=== PATIENT | female | born 1930 | race Caucasian/White ===

== ENCOUNTER 2019-07-22 18:50 | Inpatient (IN) | payer OTHER ==
--- OUTSIDE RECORDS SUMMARY | 2019-07-22 18:52 | XMS REPORT ---
:1930 [facility] [place] [address] Care Team Providers Name Role Phone Unavailable Unavailable Unavailable Problems This patient has no known problems. Allergies, Adverse Reactions, Alerts This patient has no known allergies or adverse reactions. Medications This patient has no known medications.
--- OUTSIDE RECORDS SUMMARY | 2019-07-22 18:53 | XMS REPORT ---
:1930 Author Organization e[employer] Care Team Providers Name Role Phone Jay Green Provider Role Unavailable Allergies, Adverse Reactions, Alerts Substance Reaction Event Type N.K.D.A. Info Not Available Non Drug Allergy Problems Problem Type Condition Code Onset Dates Condition Status Assessment Primary osteoarthritis of left knee M17.12 Active Assessment Pain in joint of right knee M25.561 Active Assessment Primary osteoarthritis of right M17.11 Active knee Assessment Pain in joint of left knee M25.562 Active Problem Primary insomnia F51.01 Active Problem Situational insomnia F51.09 Active Problem Acute bacterial conjunctivitis of H10.32 Active left eye Problem Primary osteoarthritis of right M17.11 Active knee Problem Other osteoporosis M81.8 Active Problem Primary osteoarthritis of left knee M17.12 Active Problem Other chronic pain G89.29 Active Problem Body mass index (BMI) of 36.0-36.9 Z68.36 Active in adult Problem Unsteady gait R26.81 Active Problem Leg weakness, bilateral R29.898 Active Problem Peripheral neuropathy G62.9 Active Problem Other insomnia not due to a F51.09 Active substance or known physiological condition Problem Incontinence in female R32 Active Problem 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 Active Problem Type 2 diabetes mellitus with E11.22 Active diabetic chronic kidney disease Problem Chronic kidney disease, stage III N18.3 Active (moderate) Problem Primary osteoarthritis of left hip M16.12 Active Problem Primary osteoarthritis of right hip M16.11 Active Problem Obstructive sleep apnea G47.33 Active Problem Depressive disorder F32.9 Active Problem Overactive bladder N32.81 Active Problem Polyneuropathy G62.9 Active Problem Bronchitis J40 Active Problem Cough R05 Active Problem Restless leg syndrome G25.81 Active Problem Bursitis M71.9 Active Medications Medication Code Code Instructions Start End Date Status Dosage System Date KevinStyle Heldere [facility] 73885370468 - In Vitro once Feb 17, Active as directed Test daily 2018 Lancets 30G [facility] 46527658500 - in vitro once Feb 17, Active as directed daily 2019 Tramadol HCl [facility] 59840021766 50 MG Orally December 29, Active 1 tablet as every 6hrs 2018 needed Ropinirole HCl [facility] 60843774017 3 MG Orally Active 1 tablet 1 Twice a day to 3 hours before bedtime Pioglitazone ND 45590630196 15 Orally Once Active take 1 HCl a day tablet by mouth every day HANDICAP NDC 0 1 permanent Feb 17, Active as directed PLACARD 2018 Oxybutynin [facility] 70457260858 10 MG Orally August Active take 1 Chloride ER Once a day 2019 tablet by mouth every day Quetiapine [facility] 78734319853 200 mg Orally Active 2 tablets Fumarate Once a day at bedtime Lyrica ND 14693659446 75 MG Orally Active 1 capsule QAM and 2 caps QHS Stool Softener [facility] 53913590834 100 MG Orally September Active 1 capsule Once a day 2016 as needed Cranberry Plus [facility] 86158110191 4200-20-3 September Active 1 capsule Vitamin C MG-MG-UNIT 2016 Orally once a day Results No Known Results Summary Purpose eClinicalWorks Submission
--- OUTSIDE RECORDS SUMMARY | 2019-07-22 18:53 | XMS REPORT ---
:1930 Author Organization [employer]Clinical[employer] Care Team Providers Name Role Phone MattRaisacy Provider Role Unavailable Allergies No Known Allergies Problems Problem Type Condition Code Onset Dates Condition Status Assessment Incontinence in female R32 Active Problem Primary insomnia F51.01 Active Problem [...] Start End Date Status Dosage System Date Oxybutynin ND 67604629996 10 MG Orally August Active take 1 Chloride ER Once a day 2019 tablet by mouth every day Ropinirole HCl NDC 97017700348 3 MG Orally May 08, Active 1 tablet 1 Twice a day 2018 to 3 hours before bedtime FreeArik Whipple ND 20790281179 - In Vitro once Feb 17, Active as directed Test daily 2018 HANDICAP NDC 0 1 permanent Feb 17, Active as directed PLACARD 2018 Quetiapine [facility] 14511595185 200 mg Orally Active 2 tablets Fumarate Once a day at bedtime Cranberry Plus [facility] 80880086634 4200-20-3 September Active 1 capsule Vitamin C MG-MG-UNIT 2016 Orally once a day Lancets 30G [facility] 08578678801 - in vitro once Feb 17, Active as directed daily 2018 Pioglitazone ND 12534750875 15 Orally Once Active take 1 HCl a day tablet by mouth every day Tramadol HCl ND 08000613289 50 MG Orally December 29, Active 1 tablet as every 6hrs 2018 needed Lyrica ND 61281656067 75 MG Orally Active 1 capsule QAM and 2 caps QHS Stool Softener [facility] 77283186611 100 MG Orally September Active 1 capsule Once a day 2016 as needed Results No Known Results Summary Purpose eClinicalWorks Submission
--- OUTSIDE RECORDS SUMMARY | 2019-07-22 18:53 | XMS REPORT ---
:1930 Author Organization [employer]ClinicalWorks Care Team Providers Name Role Phone Sharri Hernandes Provider Role Unavailable Allergies, Adverse Reactions, Alerts Substance Reaction Event Type N.K.D.A. Info Not Available Non Drug Allergy Problems Problem Type Condition Code Onset Dates Condition Status Assessment Restless leg syndrome G25.81 Active Assessment Type 2 diabetes mellitus with E11.22 Active diabetic chronic kidney disease Assessment Polyneuropathy G62.9 Active Problem Primary insomnia F51.01 Active Problem [...] Medications Medication Code Code Instructions Start End Status Dosage System Date Date Lancets 30G [facility] 28495581511 - in vitro once Feb 17, Active as daily 2019 directed Pioglitazone ND 81283516912 15 Orally Once Active take 1 HCl a day tablet by mouth every day Quetiapine ND 58372133141 200 mg Orally Active 2 tablets Fumarate Once a day at bedtime Ropinirole HCl [facility] 05223627048 3 MG Oral Active TK 1 T PO BID Q NIGHT 1 TO 3 H B BED HANDICAP ND 0 1 permanent Feb 17, Active as PLACARD 2018 directed Cranberry Plus [facility] 17334403176 4200-20-3 September Active 1 capsule Vitamin C MG-MG-UNIT 2016 Orally once a day Oxybutynin [facility] [address]-31 5 MG Orally Active 1/2 tablet Chloride Once a day Myrbetriq [facility] 36522163164 25 MG Orally Active 1 tablet Once a day FreeStyle Lite [facility] 93987279565 - In Vitro once Feb 17, Active as Test daily 2018 directed Stool Softener [facility] 13335206264 100 MG Orally September Active 1 capsule Once a day 2016 as needed Results Name Result Date Reference Range Unit Abnormality Flag HEMOGLOBIN A1C ----A1C 6.0 [id number] Summary Purpose eClinicalWorks Submission
--- OUTSIDE RECORDS SUMMARY | 2019-07-22 18:53 | XMS REPORT ---
:1930 Author Organization [employer]ClinicalWorks Care Team Providers Name Role Phone Sharri Hernandes Provider Role Unavailable Allergies No Known Allergies Problems Problem Type Condition Code Onset Dates Condition Status Assessment Leg weakness, bilateral R29.898 Active Assessment Restless leg syndrome G25.81 Active Problem Primary insomnia F51.01 Active Problem [...] G25.81 Active Problem Bursitis M71.9 Active Medications No Known Medications Results No Known Results Summary Purpose eClinicalWorks Submission
[2019-07-22] MEDS ORDERED: ENOXAPARIN 100 MG/ML SYR SQ ONE (19:31)
[2019-07-22] MEDS ORDERED: LEVALBUTEROL 1.25 MG/3 ML NEB ONE (19:31)
[2019-07-22] MEDS ORDERED: METHYLPREDNISOLONE 125 MG INJ ONE (19:31)
[2019-07-22 19:42] LABS: Protime INR 1.16
--- NOTE | 2019-07-22 19:45 | RAD REPORT ---
EXAM DESCRIPTION: [place] Single View07/22/2019 7:38 pm CLINICAL HISTORY: Shortness of breath COMPARISON: 2012 FINDINGS: [id number] bilateral pulmonary opacities. The heart is mildly enlarged. Small pleura l effusions may be present IMPRESSION: These findings probably represent CHF. Pneumonia is another consideration
[2019-07-22 19:50] LABS: Absolute Lymphocytes (CBC) 1.3 K/uL (0.7-4.9); Basophils % 0.8 % (0-1.3); Hematocrit 38.8 % (36.0-45.0); Lymphocytes % 11.8 % (15.3-44.8); MPV 9.6 fL (7.6-11.3); RBC Red Blood Cell Count 3.62 M/uL (3.86-4.86)
[2019-07-22 19:58] LABS: Albumin 3.1 g/dL (3.4-5.0); Bilirubin Direct 0.3 mg/dL (0-0.2); Bilirubin Total 0.9 mg/dL (0.2-1.0); Magnesium 2.1 mg/dL (1.8-2.4); Potassium 3.8 mmol/L (3.5-5.1); Protein, Total 6.6 g/dL (6.4-8.2); Troponin (Emerg Dept Use Only) 0.25 ng/mL (0.0-0.045)
[2019-07-22] MEDS ORDERED: FUROSEMIDE 20 MG/ 2ML VIAL ONE (20:50)
[2019-07-22] MEDS ORDERED: FUROSEMIDE 40 MG/4 ML VIAL ONE (20:51)
[2019-07-22] MEDS ORDERED: METOPROLOL TAR 25 MG TAB ONE (21:33)
--- NOTE | 2019-07-22 21:37 | EDPHYS ---
Physician Documentation [facility] Name: Lisa Hinkle Age: 88 yrs Sex: Female : 1930 Arrival Date: 07/22/2019 Time: 18:56 Bed 19 Private MD: ED Physician Rj Clay HPI: 07/22 19:44 This 88 yrs old Female presents to ER via EMS with complaints of shortness of jr8 breath. 19:44 The patient has shortness of breath at rest. Onset: The symptoms/episode began/occurred jr8 gradually, 3 day(s) ago, and became worse and became persistent. Duration: The symptoms are continuous. The patient's shortness of breath is aggravated by coughing, walking. Associated signs and symptoms: The patient has no apparent associated signs or symptoms. Severity of symptoms: At their worst the symptoms were moderate in the emergency department the symptoms are unchanged. The patient has not experienced similar symptoms in the past. The patient has not recently seen a physician. Historical: - Allergies: 18:59 No Known Allergies; jl7 - Home Meds: 19:10 quetiapine 200 mg oral tab nightly [Active]; ropinirole 3 mg oral tab [Active]; wh pioglitazone 15 mg oral tab [Active]; Cranberry Pills [Active]; Stool Softener [Active]; - PMHx: 19:10 Diabetes - NIDDM; wh - PSHx: 19:10 Cholecystectomy; wh - Immunization history:: Adult Immunizations up to date. - Coronavirus screen:: The patient has NOT traveled to [place] in the past 14 days. Proceed with normal triage process as indicated. - Social history:: Smoking status: Patient denies any tobacco usage or history of. - Ebola Screening: : No symptoms or risks identified at this time. ROS: 19:44 Eyes: Negative for injury, pain, redness, and discharge, ENT: Negative for injury, jr8 pain, and discharge, Neck: Negative for injury, pain, and swelling, Cardiovascular: Negative for chest pain, palpitations, and edema, Abdomen/GI: Negative for abdominal pain, nausea, vomiting, diarrhea, and constipation, Back: Negative for injury and pain, MS/Extremity: Negative for injury and deformity, Skin: Negative for injury, rash, and discoloration, Neuro: Negative for headache, weakness, numbness, tingling, and seizure. 19:44 Respiratory: Positive for dyspnea on exertion, shortness of breath, wheezing. Exam: 19:44 Eyes: Pupils equal round and reactive to light, extra-ocular motions intact. Lids and jr8 lashes normal. Conjunctiva and sclera are non-icteric and not injected. Cornea within normal limits. Periorbital areas with no swelling, redness, or edema. ENT: Nares patent. No nasal discharge, no septal abnormalities noted. Tympanic membranes are normal and external auditory canals are clear. Oropharynx with no redness, swelling, or masses, exudates, or evidence of obstruction, uvula midline. Mucous membranes moist. Neck: Trachea midline, no thyromegaly or masses palpated, and no cervical lymphadenopathy. Supple, full range of motion without nuchal rigidity, or vertebral point tenderness. No Meningismus. Cardiovascular: Regular rate and rhythm with a normal S1 and S2. No gallops, murmurs, or rubs. Normal PMI, no JVD. No pulse deficits. Abdomen/GI: Soft, non-tender, with normal bowel sounds. No distension or tympany. No guarding or rebound. No evidence of tenderness throughout. Back: No spinal tenderness. No costovertebral tenderness. Full range of motion. Skin: Warm, dry with normal turgor. Normal color with no rashes, no lesions, and no evidence of cellulitis. MS/ Extremity: Pulses equal, no cyanosis. Neurovascular intact. Full, normal range of motion. Neuro: Awake and alert, GCS 15, oriented to person, place, time, and situation. Cranial nerves II-XII grossly intact. Motor strength 5/5 in all extremities. Sensory grossly intact. Cerebellar exam normal. Normal gait. 19:44 Respiratory: mild respiratory distress is noted, Respirations: labored breathing, tachypnea, Breath sounds: wheezing: expiratory that is moderate, is heard diffusely, Respiratory rate: 28 Vital Signs: 18:59 BP 109 / 72; Pulse 72; Resp 28 S; Temp 99.3(O); Pulse Ox 97% on R/A; Weight 90.72 kg jl7 (R); Pain 0/10; 20:00 BP 102 / 56; Pulse 86; Resp 18; Pulse Ox 99% on 2 lpm NC; wh 20:56 BP 117 / 75; Pulse 100; Resp 22; Pulse Ox 99% on 2 lpm NC; wh 22:30 BP 116 / 77; Pulse 97; Resp 20; Pulse Ox 98% 2 lpm ; MDM: 19:05 Patient medically screened. [facility] 21:35 Data reviewed: vital signs, nurses notes, lab test result(s), EKG, radiologic studies, jr8 plain films. Data interpreted: Pulse oximetry: on room air is 97 %. Interpretation: acceptable. Counseling: I had a detailed discussion with the patient and/or guardian regarding: the historical points, exam findings, and any diagnostic results supporting the discharge/admit diagnosis, lab results, radiology results, the need for further work-up and treatment in the hospital. 07/22 19:11 Order name: Basic Metabolic Panel; Complete Time: 20:17 07/22 19:11 Order name: CBC with Diff 07/22 19:11 Order name: LFT's; Complete Time: 20:17 07/22 19:11 Order name: Magnesium; Complete Time: 20:07/22 19:11 Order name: NT PRO-BNP; Complete Time: 20:17 07/22 19:11 Order name: PT-INR; Complete Time: 19:58 07/22 19:11 Order name: Troponin (emerg Dept Use Only); Complete Time: 20:17 07/22 19:11 Order name: XRAY Chest (1 view); Complete Time: 20:19 07/22 19:41 Order name: Blood Culture Adult (2) [facility] 07/22 19:41 Order name: Procalcitonin; Complete Time: 21:06 07/22 19:41 Order name: Lactate; Complete Time: 21:06 07/22 22:38 Order name: CBC Smear Scan EDMS 07/22 19:11 Order name: EKG; Complete Time: 19:12 07/22 19:11 Order name: Cardiac monitoring; Complete Time: 19:31 07/22 19:11 Order name: EKG - Nurse/Tech; Complete Time: 19:15 07/22 19:11 Order name: IV Saline Lock; Complete Time: 19:15 07/22 19:11 Order name: Labs collected and sent; Complete Time: 19:31 07/22 19:11 Order name: O2 Per Protocol; Complete Time: 19:31 jr8 07/22 19:11 Order name: O2 Sat Monitoring; Complete Time: : jr8 Administered Medications: 19:30 Drug: SOLU-Medrol 125 mg Route: IVP; Site: left antecubital; 23:32 Follow up: Response: No adverse reaction 19:31 Drug: Xopenex (3) 1.25 mg Route: Inhalation; 23:32 Follow up: Response: No adverse reaction; Wheezing diminished 19:33 Drug: Lovenox 1 mg/kg Route: Sub-Q; Site: right lower abdomen; 23:32 Follow up: Response: No adverse reaction 20:56 Drug: Lasix 60 mg Route: IVP; Site: right antecubital; 23:33 Follow up: Response: No adverse reaction 21:27 Drug: Metoprolol 25 mg Route: PO; 23:33 Follow up: Response: No adverse reaction Disposition: 07/22/19 21:36 Hospitalization ordered by Sd Jarvis for Inpatient Admission. Preliminary diagnosis are Acute pulmonary edema, Acute combined systolic (congestive) and diastolic (congestive) heart failure, Atrial fibrillation and flutter. - Bed requested for Telemetry/MedSurg (Inpatient). - Status is Inpatient Admission. - Condition is Fair. - Problem is new. - Symptoms have improved. Addendum: 07/25/2019 07:14 Co-signature as Attending Physician, Rj Clay MD. r n Signatures: Dispatcher [employer] EDMS Rj Clay MD MD rn Roszak, Josh, PA PA jr8 Funmi Bowie RN RN tl1 Carlos Craig RN RN jl7 Zachary Bonilla Corrections: (The following items were deleted from the chart) 07/22 23:15 21:36 Hospitalization Ordered by Sd Jarvis for Inpatient Admission. Preliminary tl1 diagnosis is Acute pulmonary edema; Acute combined systolic (congestive) and diastolic (congestive) heart failure; Atrial fibrillation and flutter. Bed requested for Telemetry/MedSurg (Inpatient). Status is Inpatient Admission. Condition is Fair. Problem is new. Symptoms have improved. jr8 07/23 00:10 07/22 23:15 07/22/2019 21:36 Hospitalization Ordered by Sd Jarvis for Inpatient Admission. Preliminary diagnosis is Acute pulmonary edema; Acute combined systolic (congestive) and diastolic (congestive) heart failure; Atrial fibrillation and flutter. Bed requested for Telemetry/MedSurg (Inpatient). Status is Inpatient Admission. Condition is Fair. Problem is new. Symptoms have improved. tl1
--- NOTE | 2019-07-22 21:37 | ER ---
Nurse's Notes [facility] [place] Name: Lisa Hinkle Age: 88 yrs Sex: Female : 1930 Arrival Date: 07/22/2019 Time: 18:56 Bed 19 Private MD: Diagnosis: Acute pulmonary edema;Acute combined systolic (congestive) and diastolic (congestive) heart failure;Atrial fibrillation and flutter Presentation: 07/22 18:57 Presenting complaint: EMS states: Cough x 3 days, sob since this morning. Transition of [facility] care: patient was not received from another setting of care. Onset of symptoms was July 22, 2019. Risk Assessment: Do you want to hurt yourself or someone else? Patient reports no desire to harm self or others. Initial Sepsis Screen: Does the patient meet any 2 criteria? No. Patient's initial sepsis screen is negative. Does the patient have a suspected source of infection? No. Patient's initial sepsis screen is negative. Care prior to arrival: IV initiated. 20 GA, in the left antecubital area, Glucose check: 200. 18:57 Method Of Arrival: EMS: [place] [id number] 18:57 Acuity: SARA 3 [facility] Triage Assessment: 18:59 General: Appears in no apparent distress. uncomfortable, Behavior is cooperative, jl7 anxious. Pain: Denies pain. Neuro: Level of Consciousness is awake, alert, obeys commands, Oriented to person, place, time, situation. Cardiovascular: Patient's skin is warm and dry. Respiratory: Airway is patent Respiratory effort is even, unlabored, Respiratory pattern is symmetrical, tachypnea. Derm: Skin is pink, warm \T\ dry. Historical: - Allergies: 18:59 No Known Allergies; jl7 - Home Meds: 19:10 quetiapine 200 mg oral tab nightly [Active]; ropinirole 3 mg oral tab [Active]; pioglitazone 15 mg oral tab [Active]; Cranberry Pills [Active]; Stool Softener [Active]; - PMHx: 19:10 Diabetes - NIDDM; wh - PSHx: 19:10 Cholecystectomy; wh - Immunization history:: Adult Immunizations up to date. - Coronavirus screen:: The patient has NOT traveled to [place] in the past 14 days. Proceed with normal triage process as indicated. - Social history:: Smoking status: Patient denies any tobacco usage or history of. - Ebola Screening: : No symptoms or risks identified at this time. Screenin:05 Abuse screen: Denies threats or abuse. Denies injuries from another. Nutritional wh screening: No deficits noted. Tuberculosis screening: No symptoms or risk factors identified. Fall Risk None identified. Assessment: 19:10 General: Appears in no apparent distress. Behavior is calm, cooperative, appropriate wh for age. Pain: Denies pain. Neuro: Level of Consciousness is awake, alert, obeys commands, Oriented to person, place, time, situation, Appropriate for age. Cardiovascular: Heart tones S1 S2. Respiratory: Reports shortness of breath at rest cough that is. Respiratory: Airway is patent Respiratory effort is even, labored, Respiratory pattern is symmetrical, tachypnea Breath sounds with wheezes. GI: Abdomen is flat, non-distended. : No signs and/or symptoms were reported regarding the genitourinary system. EENT: Throat is pink. Derm: Skin is intact, is healthy with good turgor, Skin is pink, warm \T\ dry. normal. Musculoskeletal: Circulation, motion, and sensation intact. 20:30 Reassessment: Patient appears in no apparent distress at this time. No changes from previously documented assessment. Patient and/or family updated on plan of care and expected duration. Pain level reassessed. Patient is alert, oriented x 3, equal unlabored respirations, skin warm/dry/pink. 22:00 Reassessment: Patient appears in no apparent distress at this time. No changes from previously documented assessment. Patient and/or family updated on plan of care and expected duration. Pain level reassessed. Patient is alert, oriented x 3, equal unlabored respirations, skin warm/dry/pink. MD at bedside explaining POC need for admit Patient states feeling better. Patient states symptoms have improved. Reassessment:. 23:09 Reassessment: Patient appears in no apparent distress at this time. No changes from previously documented assessment. Patient and/or family updated on plan of care and expected duration. Pain level reassessed. Patient is alert, oriented x 3, equal unlabored respirations, skin warm/dry/pink. Patient states feeling better. Patient states symptoms have improved. Vital Signs: 18:59 BP 109 / 72; Pulse 72; Resp 28 S; Temp 99.3(O); Pulse Ox 97% on R/A; Weight 90.72 kg jl7 (R); Pain 0/10; 20:00 BP 102 / 56; Pulse 86; Resp 18; Pulse Ox 99% on 2 lpm NC; wh 20:56 BP 117 / 75; Pulse 100; Resp 22; Pulse Ox 99% on 2 lpm NC; wh 22:30 BP 116 / 77; Pulse 97; Resp 20; Pulse Ox 98% 2 lpm ; ED Course: 18:56 Patient arrived in ED. jl7 18:58 Triage completed. jl7 18:59 Arm band placed on right wrist. jl7 19:04 Colt Moore, RN is Primary Nurse. rr5 19:05 Zachary Bonilla is Primary Nurse. wh 19:05 Kyrie Gibbs PA is PHCP. jr8 19:05 Rj Clay MD is Attending Physician. jr8 19:05 Patient has correct armband on for positive identification. Placed in gown. Bed in low wh position. Call light in reach. Side rails up X 1. systems qa analyst on. Pulse ox on. NIBP on. 19:10 EKG done, by ED staff, reviewed by Rj Clay MD. ds4 19:38 XRAY Chest (1 view) In Process Unspecified. EDMS 20:20 Inserted saline lock: 20 gauge in right antecubital area, using aseptic technique. ds4 Blood collected. 20:34 Blood Culture Adult (2) Sent. ds4 20:34 Procalcitonin Sent. ds4 20:34 Lactate Sent. ds4 21:35 Sd Jarvis is Hospitalizing Provider. jr8 07/23 00:09 No provider procedures requiring assistance completed. Patient admitted, IV remains in place. Administered Medications: 07/22 19:30 Drug: SOLU-Medrol 125 mg Route: IVP; Site: left antecubital; 23:32 Follow up: Response: No adverse reaction 19:31 Drug: Xopenex (3) 1.25 mg Route: Inhalation; 23:32 Follow up: Response: No adverse reaction; Wheezing diminished 19:33 Drug: Lovenox 1 mg/kg Route: Sub-Q; Site: right lower abdomen; 23:32 Follow up: Response: No adverse reaction 20:56 Drug: Lasix 60 mg Route: IVP; Site: right antecubital; 23:33 Follow up: Response: No adverse reaction 21:27 Drug: Metoprolol 25 mg Route: PO; 23:33 Follow up: Response: No adverse reaction Outcome: 21:36 Decision to Hospitalize by Provider. jr8 07/23 00:09 Admitted to Tele accompanied by nurse, family with patient, via wheelchair, room 408, with oxygen, with chart, Report called to Dinah PEOPLES Condition: stable Instructed on the need for admit. 00:10 Patient left the ED. Signatures: Dispatcher [employer] EDMS Kyrie Gibbs PA PA jr8 Chandler Paula ds4 Carlos Craig RN RN jl7 Zachary Bonilla Colt Moore, RN RN rr5 Corrections: (The following items were deleted from the chart) 01:33 07/22 20:56 BP 117 / 75; Pulse 100bpm; Resp 22bpm; Pulse Ox 99% RA; [facility] 07/23 02:04 07/22 19:10 Respiratory: Airway is patent Respiratory effort is even, unlabored, Respiratory pattern is regular, symmetrical, Breath sounds with wheezes
[2019-07-22 22:38] LABS: Anisocytosis 1+; Blood Morphology Comment NOTED (NOT SEEN); Platelet Estimate ADEQ; Urine White Blood Cell Casts OK
--- NOTE | 2019-07-22 22:56 | P.HP ---
Certification for Inpatient Patient admitted to: Inpatient With expected LOS: >2 Midnights Practitioner: I am a practitioner with admitting privileges, knowledge of patient current condition, hospital course, and medical plan of care. Services: Services provided to patient in accordance with Admission requirements found in Title 42 Section 412.3 of the Code of Federal Regulations Patient History Date of Service: 07/22/19 Reason for admission: Shortness of breath History of Present Illness: 88-year-old woman with a history of restless leg syndrome and diabetes mellitus type 2 presented to the emergency department with a complaint shortness of breath of 3 days duration. Patient reports wheezing and nonproductive cough. Symptoms associated with orthopnea. She denied any chest pain or palpitation. She denied any fever. The patient noted to be in rapid atrial fibrillation in the ED. Chest x-ray in the ED report vascular congestion. She has no prior history of CHF. She mentioned at a point in time was told she has irregular heartbeat but that never bothered her. Her initial troponin is elevated. EKG demonstrates atrial fibrillation. BNP is elevated. Patient is admitted for further management of new onset CHF. Allergies codeine [Codeine] Allergy (Mild, Verified 07/12/15 08:12) Hives Home Medications: Cranberry 500 mg PO DAILY 01/29/12 Docusate Sodium [Stool Softener] 100 mg PO DAILY 09/12/16 Pioglitazone [Actos*] 15 mg PO DAILY 07/23/19 Quetiapine [Seroquel*] 200 mg PO BEDTIME 07/23/19 Ropinirole HCl [Requip] 3 mg PO BEDTIME 07/23/19 - Past Medical/Surgical History -: Restless leg syndrome -: Diabetes mellitus type 2 -: Back surgeries -: Shoulder surgery -: Cholecystectomy - Family History Family History: Reviewed- Non-Contributory - Family History Mother Notes: lung ca Father History Unknown: Yes - Social History Smoking Status: Never smoker Alcohol use: No CD- Drugs: No Caffeine use: Yes Review of Systems Other: Except as documented, all other systems reviewed and negative. Physical Examination - Physical Exam General: Alert, Oriented x3, Mild distress (Respiratory distress), Obese HEENT: PERRLA, Mucous membr. moist/pink, Sclerae nonicteric Neck: Supple, No Thyromegaly, JVD distended Respiratory: Normal air movement, Crackles/rales (Bilateral), Expiratory wheezes Cardiovascular: No edema, Normal S1 S2, Irregular heart rate/rhythm Capillary refill: <2 Seconds Gastrointestinal: Normal bowel sounds, Soft and benign, Non-distended, No tenderness Musculoskeletal: No swelling, No erythema Integumentary: No rashes Neurological: Normal speech, Normal strength at 5/5 x4 extr, Cranial nerves 3- 12 intact - Studies Laboratory Data (last 24 hrs) 07/22/19 19:25: PT 13.6 H, INR 1.16 07/22/19 19:25: WBC 10.7, Hgb 12.8, Hct 38.8, Plt Count 373 07/22/19 19:25: Sodium 139, Potassium 3.8, BUN 16, Creatinine 1.07, Glucose 156 H, Magnesium 2.1, Total Bilirubin 0.9, AST 18, ALT 15, Alkaline Phosphatase 111 Assessment and Plan - Problems (Diagnosis) (1) Acute CHF Current Visit: Yes Status: Acute (2) Atrial fibrillation with RVR Current Visit: Yes Status: Acute (3) Elevated troponin Current Visit: Yes Status: Acute (4) DM type 2 (diabetes mellitus, type 2) Current Visit: Yes Status: Acute - Plan Admit to Telemetry Trend troponin Start IV Lasix 40 mg b.i.d. Full-dose Lovenox for NSTEMI and AFib anticoagulation. Aspirin. Check lipid profile Oral metoprolol b.i.d. for AFib with RVR. Obtain echocardiogram Cardiology consult. - Advance Directives Does patient have a Living Will: No Does patient have a Durable POA for Healthcare: No
[2019-07-23] MEDS: IPRATROPIUM BROM 0.5MG/2.5ML NEB SCH ×7 (01:00→23:25)
[2019-07-23] MEDS: ALBUTEROL 2.5 MG/3 ML NEB SOL NEB PRN ×3 (04:25→19:40)
[2019-07-23 05:00] LABS: Absolute Lymphocytes (CBC) 0.5 K/uL (0.7-4.9); Basophils % 0.2 % (0-1.3); Hematocrit 34.7 % (36.0-45.0); Lymphocytes % 5.1 % (15.3-44.8); MPV 9.9 fL (7.6-11.3); RBC Red Blood Cell Count 3.32 M/uL (3.86-4.86)
[2019-07-23 05:13] LABS: Magnesium 1.9 mg/dL (1.8-2.4); Phosphorus 3.9 mg/dL (2.5-4.9)
--- NOTE | 2019-07-23 07:20 | EKG ---
Test Date: 2019-07-22 Test Time: 19:07:49 Stock Preparer: JEY MEASUREMENT RESULTS: Intervals: Rate: 117 SC: QRSD: 86 QT: 334 QTc: 465 [place]: P: SC: QRS: 14 T: 83 INTERPRETIVE STATEMENTS: Atrial fibrillation with rapid ventricular response Nonspecific T wave abnormality Abnormal ECG Compared to ECG 09/12/2016 14:48:26 T-wave abnormality now present Sinus rhythm no longer present Atrial premature complex(es) no longer present Electronically Signed On 07-23-19 07:19:14 MATERIAL MIXER by Krishna Worley
[2019-07-23] MEDS: ENOXAPARIN 100 MG/ML SYR SQ SCH ×2 (08:08→20:05)
[2019-07-23] MEDS: INSULIN -REGULAR HUMAN 50 UNIT/0.5 ML ML SQ SCH ×4 (08:08→20:06)
[2019-07-23] MEDS: FUROSEMIDE 40 MG/4 ML VIAL IV SCH ×2 (08:09→16:52)
[2019-07-23] MEDS: ASPIRIN EC 81 MG TAB PO SCH (08:09)
[2019-07-23] MEDS: METOPROLOL TAR 50 MG TAB PO SCH ×2 (08:09→21:00)
--- NOTE | 2019-07-23 09:49 | P.PN ---
Subjective Date of Service: 07/23/19 Chief Complaint: Shortness of breath Subjective: No new changes (Still having shortness of breath Cough with mucoid expectoration) Review of Systems 10-point ROS is otherwise unremarkable Physical Examination - Vital Signs Temperature: 96.7 F Blood Pressure: 93/60 Pulse: 89 Respirations: 28 Pulse Ox (%): 94 - Physical Exam General: Alert, In no apparent distress, Oriented x3 HEENT: Atraumatic, Normocephalic Neck: Supple, 2+ carotid pulse no bruit Respiratory: Diminished, Crackles/rales, Expiratory wheezes Cardiovascular: Irregular heart rate/rhythm Capillary refill: <2 Seconds Gastrointestinal: Soft and benign, W/out hepatosplenomegaly Musculoskeletal: No clubbing, Swelling Integumentary: No rashes, No breakdown Neurological: Normal speech, Normal strength at 5/5 x4 extr Lymphatics: No axilla or inguinal lymphadenopathy Urinary: Other (No bladder distention) External genitalia: Deferred Rectal: Deferred - Studies Laboratory Data (last 24 hrs) 07/22/19 19:25: PT 13.6 H, INR 1.16 07/22/19 19:25: WBC 10.7, Hgb 12.8, Hct 38.8, Plt Count 373 07/22/19 19:25: Sodium 139, Potassium 3.8, BUN 16, Creatinine 1.07, Glucose 156 H, Magnesium 2.1, Total Bilirubin 0.9, AST 18, ALT 15, Alkaline Phosphatase 111 Assessment & Plan - Problems (Diagnosis) (1) Acute CHF Current Visit: Yes Status: Acute (2) Atrial fibrillation with RVR Current Visit: Yes Status: Acute (3) DM type 2 (diabetes mellitus, type 2) Current Visit: Yes Status: Acute (4) Elevated troponin Current Visit: Yes Status: Acute (5) Insomnia Current Visit: No Status: Acute (6) Neuropathy Current Visit: No Status: Acute Plan: Acute CHF exacerbation possibly diastolic Atrial fibrillation rate controlled Elevated troponin possibly Trop leak from CHF Bibasilar pneumonia Elevated lactic acid DM Hypertension Neuropathy Plan monitored by telemetry Echocardiogram Aggressive diuresis Cardiology consult Anticoagulation Trend cardiac enzymes Started on antibiotic empirically to cover for pneumonia bronchodilators Antitussives Insulin sliding scale and patient has hypotension Hold antihypertensives for now GI/DVT prophylaxis Discharge Plan: Home Plan to discharge in: 48 Hours Time Spent Managing Pts Care (In Minutes): 42
[2019-07-23] MEDS: CEFTRIAXONE/SWI 1gm 1 GM/10 ML SYR IV SCH (10:37)
[2019-07-23] MEDS: AZITHROMYCIN IV 500 MG in NA CHLORIDE 0.9% 250 ML IVPB SCH (11:44)
--- NOTE | 2019-07-23 12:12 | CON ---
Date of Consultation: 07/23/[address] Jarvis on 07/22/2019. I saw the patient on 07/23/2019. Reason For Consultation: Congestive heart failure. History Of Present Illness: Ms. Hinkle is an 88-year-old white woman, no previous cardiac history, except for diabetes, apparently has been told she has an irregular heartbeat in the past. She sees Leonie Hernandes for her primary care. Had been short of breath with some pedal edema, PND, orthopnea , and persistent cough for few weeks. Was admitted through the emergency room. Chest x-ray shows po ssible pneumonia versus congestive heart failure. She was in atrial fibrillation at a rate of about 100, blood pressure was 90/54. Her glucose was 195. Her troponin was 0.2. BNP was 2727. She is al ready on inhalers, aspirin, metoprolol, Lasix, and Lovenox and is improving slowly but surely. Denie d any chest pain. She denied any syncope. She herself denied any palpitations. Past Medical History: As stated above. Allergies: CODEINE. Review of Systems: Negative. Social History: Negative. Family History: Negative. Medications: She does not take any cardiac medications at home. She takes 1 tablet for her diabetes . Physical Examination: General: Ms. Hinkle is 88, looks younger than her stated age, very intelligent. Vital Signs: Afebrile, atrial fibrillation at rate of 100, blood pressure 90/54. HEENT: Negative. Neck: Supple without any bruit, lymphadenopathy, JVD, or thyromegaly. Chest: Revealed expiratory wheezing and rales at both bases. Cardiac: Revealed atrial fibrillation with an aortic sclerosis, murmur. No gallops or rubs. Abdomen: Obese but benign. Extremities: Revealed 1+ edema. Skin: Dry and intact. Neurological: She was nonfocal. Pulses were present in the distal extremities bilaterally symmetric ally. Diagnostic Data: As stated earlier. Impression And Plan: 1.Possible acute diastolic congestive heart failure. 2.Atrial fibrillation, rate controlled. 3.Hypotension. 4.Possible pneumonia. 5.Diabetes. 6.Elevated troponin and BNP secondary to congestive heart failure. I agree with her present regimen. Echocardiogram will help us decide further therapy down the road. I will discuss the case further with Dr. Jarvis. We will continue to follow her. PHILOMENA/SALAZAR Voice ID: [id number] Report ID: [id number]
[2019-07-23] MEDS: PREGABALIN 50 MG CAP PO SCH (17:25)
[2019-07-23] MEDS ORDERED: PREGABALIN 50 MG CAP PO SCH (17:30)
[2019-07-23] MEDS: QUETIAPINE 100MG TAB PO SCH (20:05)
[2019-07-23] MEDS: ROPINIROLE HCL 1 MG TAB PO SCH (20:05)
[2019-07-23] MEDS: GUAIFENESIN 600 MG SA TAB PO SCH (20:07)
[2019-07-24] MEDS ORDERED: MELATONIN 5 MG TABLET PO ONE (01:00)
[2019-07-24] MEDS ORDERED: IPRATROPIUM BROM 0.5MG/2.5ML ONE (03:57)
[2019-07-24] MEDS: ALBUTEROL 2.5 MG/3 ML NEB SOL NEB PRN ×3 (04:15→14:05)
[2019-07-24] MEDS: IPRATROPIUM BROM 0.5MG/2.5ML NEB SCH ×3 (04:15→12:00)
[2019-07-24] MEDS: INSULIN -REGULAR HUMAN 50 UNIT/0.5 ML ML SQ SCH ×4 (07:30→20:34)
--- NOTE | 2019-07-24 08:04 | ECHO ---
HEIGHT: 5 ft 7 in WEIGHT: 223 lb 0 oz DATE OF STUDY: 07/23/[address]: heather piedra 2-DIMENSIONAL: YES M.MODE: YES DOPPLER: YES COLOR FLOW: YES TDS: YES PORTABLE: NO DEFINITY: NO BUBBLE STUDY: NO DIAGNOSIS: CONGESTIVE HEART FAILURE, RAPID ATRIAL FIBRILLATION CARDIAC HISTORY: CATHERIZATION: NO SURGERY: NO PROSTHETIC VALVE: NO PACEMAKER: NO MEASUREMENTS (cm) DIASTOLIC (NORMALS) SYSTOLIC (NORMALS) IVSd 1.3 (0.6-1.2) LA Diam 3.2 (1.9-4.0) LVEF 54% LVIDd 3.3 (3.5-5.7) LVIDs 2.4 (2.0-3.5) %FS 27% LVPWd 1.3 (0.6-1.2) Ao Diam 3.1 (2.0-3.7) 2 DIMENSIONAL ASSESSMENT: RIGHT ATRIUM: NORMAL LEFT ATRIUM: NORMAL RIGHT VENTRICLE: NORMAL LEFT VENTRICLE: LEFT VENTRICULAR HYPERTROPHY TRICUSPID VALVE: NORMAL MITRAL VALVE: MITRAL ANNULAR CALCIFICATION PULMONIC VALVE: NORMAL AORTIC VALVE: SCLEROSIS PERICARDIAL EFFUSION: NONE AORTIC ROOT: NORMAL LEFT VENTRICULAR WALL MOTION: NORMAL LEFT VENTRICULAR EJECTION FRACTION. DECREASED LEFT VENTRICULAR COMPLIANCE. DOPPLER/COLOR FLOW: MILD TRICUSPID REGURGITATION. NORMAL RIGHT VENTRICULAR SYSTOLIC PRESSURE. COMMENTS: NORMAL LEFT VENTRICULAR EJECTION FRACTION. DECREASED LEFT VENTRICULAR COMPLIANCE. LEFT VENTRICULAR HYPERTROPHY. MITRAL ANNULAR CALCIFICATION. AORTIC SCLEROSIS. MILD TRICUSPID REGURGITATION. TECHNOLOGIST: Parvin MIRANDA
[2019-07-24] MEDS: METOPROLOL TAR 50 MG TAB PO SCH (09:00)
[2019-07-24] MEDS: CEFTRIAXONE/SWI 1gm 1 GM/10 ML SYR IV SCH (09:30)
[2019-07-24] MEDS: AZITHROMYCIN IV 500 MG in NA CHLORIDE 0.9% 250 ML IVPB SCH (09:30)
[2019-07-24] MEDS: GUAIFENESIN 600 MG SA TAB PO SCH ×2 (09:31→20:33)
[2019-07-24] MEDS: DOCUSATE NA 100 MG CAP PO SCH (09:31)
[2019-07-24] MEDS: CRANBERRY FRUIT EXTRACT 200 MG CAP PO SCH (09:31)
[2019-07-24] MEDS: ASPIRIN EC 81 MG TAB PO SCH (09:31)
[2019-07-24] MEDS: ENOXAPARIN 100 MG/ML SYR SQ SCH ×2 (09:31→20:34)
--- NOTE | 2019-07-24 11:26 | P.PN ---
Subjective Date of Service: 07/24/19 Chief Complaint: Shortness of breath Subjective: New changes (Had worsening of shortness of breath Denies any chest pain Looks tired) Review of Systems No fever no chills Respiratory: Cough, Shortness of Breath, SOB with Excertion, Wheezing Physical Examination - Vital Signs Temperature: 97.4 F Blood Pressure: 92/51 Pulse: 118 Respirations: 19 Pulse Ox (%): 95 - Physical Exam General: Alert, Moderate distress HEENT: Atraumatic, Normocephalic Neck: Supple Respiratory: Diminished, Crackles/rales, Expiratory wheezes Cardiovascular: No edema, Regular rate/rhythm Capillary refill: <2 Seconds Gastrointestinal: Soft and benign, W/out hepatosplenomegaly Musculoskeletal: No clubbing, No swelling Integumentary: No rashes Neurological: Normal speech, Normal strength at 5/5 x4 extr Lymphatics: No axilla or inguinal lymphadenopathy External genitalia: Deferred Rectal: Deferred Assessment & Plan - Problems (Diagnosis) (1) Acute CHF Current Visit: Yes Status: Acute (2) Atrial fibrillation with RVR Current Visit: Yes Status: Acute (3) DM type 2 (diabetes mellitus, type 2) Current Visit: Yes Status: Acute (4) Elevated troponin Current Visit: Yes Status: Acute (5) Insomnia Current Visit: No Status: Acute (6) Neuropathy Current Visit: No Status: Acute Plan: Acute CHF exacerbation diastolic Atrial fibrillation rate controlled Elevated troponin possibly Trop leak from CHF ? Bibasilar pneumonia Elevated lactic acid DM Hypertension Neuropathy Plan monitored by telemetry Echocardiogram Aggressive diuresis Cardiology consult Anticoagulation Trend cardiac enzymes Started on antibiotic empirically to cover for pneumonia bronchodilators Antitussives Insulin sliding scale and patient has hypotension Hold antihypertensives for now Patient still havinglots of wheezes Will place her on BiPAP Aggressive diuresis with Lasix Transfer the patient to ICU Will consult pulmonology Cardiology consult appreciated Monitor closely Time Spent Managing Pts Care (In Minutes): 42
[2019-07-24] MEDS: FUROSEMIDE 40 MG/4 ML VIAL IV SCH ×2 (11:56→16:26)
--- NOTE | 2019-07-24 11:57 | RAD REPORT ---
EXAM DESCRIPTION: [place] Single View07/24/2019 11:38 am CLINICAL HISTORY: Shortness of breath COMPARISON: July 22, 2019 FINDINGS: Mild worsening in bibasilar opacities. Mild upper lobe opacity is unchanged Heart remains enlarged IMPRESSION: Mild worsening in bibasilar opacities which may represent a combination of pleural effus ions and atelectasis. Mild to moderate CHF is suspected
[2019-07-24] MEDS ORDERED: METHYLPREDNISOLONE 125 MG INJ IV SCH (12:00)
--- NOTE | 2019-07-24 12:45 | P.CNS ---
Date of Consult: 07/24/19 Reason for Consult: Respiratory distress Chief Complaint: Shortness of breath History of Present Illness: Patient is 88 years of age no prior cardiopulmonary problems admitted with shortness of breath and wheezing nonproductive cough orthopnea is in AFib the patient developed more respiratory distress and was transferred to the ICU apparently a blood pressure dropped not give her any Lasix chest x-ray shows some interstitial changes patient does not smoke denies any fever or chill Patient is also on Actos Allergies codeine [Codeine] Allergy (Mild, Verified 07/12/15 08:12) Hives Home Medications: Cranberry 500 mg PO DAILY 01/29/12 Docusate Sodium [Stool Softener] 100 mg PO DAILY 09/12/16 Mirabegron [Myrbetriq] 50 mg PO DAILY 07/23/19 Pioglitazone [Actos*] 15 mg PO DAILY 07/23/19 Pregabalin [Lyrica*] 100 mg PO DAILY AFTER SUPPER 07/23/19 Quetiapine [Seroquel*] 200 mg PO BEDTIME 07/23/19 Ropinirole HCl [Requip] 3 mg PO BEDTIME 07/23/19 - Past Medical/Surgical History Diabetic: Yes -: Restless leg syndrome -: Diabetes mellitus type 2 -: irregular heart beat -: Back surgeries -: Shoulder surgery -: Cholecystectomy - Family History Mother Notes: lung ca Father History Unknown: Yes - Social History Smoking Status: Unknown if ever smoked Alcohol use: No CD- Drugs: No Caffeine use: Yes Place of Residence: Home Review of Systems 10-point ROS is otherwise unremarkable General: Weakness Respiratory: Cough, Shortness of Breath Physical Examination Temp Pulse Resp BP Pulse Ox 97.4 F 96 H 19 114/85 95 07/24/19 11:26 07/24/19 11:56 07/24/19 11:26 07/24/19 11:56 07/24/19 11:26 General: Alert, Oriented x3, Moderate distress Respiratory: Clear to auscultation bilaterally, Crackles/rales, Expiratory wheezes Cardiovascular: No edema, Regular rate/rhythm Gastrointestinal: Normal bowel sounds, Soft and benign Musculoskeletal: No clubbing, No swelling - Problems (1) Respiratory distress Current Visit: Yes Status: Acute Plan: Patient is 88 years of age admitted to the hospital with worsening dyspnea chest x-ray shows significant interstitial disease with elevated BNP most likely volume overload may have underlying diastolic dysfunction patient has left ventricular hypertrophy no evidence of sepsis pro calcitonin level is negative Dc all antibiotics blood gases are pending renal function is normal at spironolactone reduce Lasix to b.i.d. dose patient is not on diuretics at home may be a side effect of Actos
[2019-07-24] MEDS ORDERED: IPRATROPIUM BROM 0.5MG/2.5ML NEB PRN (12:48)
--- NOTE | 2019-07-24 14:04 | PN ---
Ms. Hinkle had come in with congestive heart failure, atrial fibrillation, diabetes, elevated tropon in. Echocardiogram yesterday showed decreased left ventricular compliance, but no specific wall elise on abnormalities otherwise. I think her troponin elevation is secondary to her congestive heart fail ure that is acute diastolic. Certainly it may be exacerbated with atrial fibrillation. She continue s to feel short-winded. On physical examination, she still has rales. I suggest continuing IV diure sis. She needs to be on beta blockers, salt restriction, fluid restriction. We should consider her a candidate for anticoagulation long-term without cardioversion unless her symptoms persist. We will continue to follow her. PHILOMENA/SALAZAR Voice ID: [id number] Report ID: [id number]
--- NOTE | 2019-07-24 14:54 | RAD REPORT ---
EXAM DESCRIPTION: US - Extrem Venous W Compress Fabricio - 07/24/2019 2:47 pm CLINICAL HISTORY: r/o DVTbilateral leg pain and swelling COMPARISON: None. TECHNIQUE: Real-time sonographic evaluation of the bilateral lower extremity common femoral, superfi cial femoral, popliteal and posterior tibial veins was performed. FINDINGS: Normal compressibility, flow augmentation, phasic flow and spontaneous flow are identified in the left and right lower extremity common femoral, superficial femoral, popliteal and posterior t ibial veins. No intraluminal filling defects seen. IMPRESSION: No DVT in either lower extremity.
[2019-07-24] MEDS ORDERED: POLYETHYL GLY 3350 17 GM/DOSE PO PRN (15:56)
--- NOTE | 2019-07-24 15:56 | RAD REPORT ---
EXAM DESCRIPTION: CT - Chest For Pe Angio - 07/24/2019 3:31 pm CLINICAL HISTORY: Respiratory distress COMPARISON: None. TECHNIQUE: Dynamically enhanced axial 3 mm thick images of the chest were obtained during administra tion of <100> mL Isovue 370 IV contrast. Coronal and oblique reconstruction images were generated and reviewed. Exam utilizes a protocol for optimal evaluation of pulmonary arterial tree. Maximum intensity projections 3D imaging was utilized All CT scans are performed using dose optimization technique as appropriate and may include automated exposure control or mA/KV adjustment according to patient size. FINDINGS: A pulmonary embolus is not seen. A thoracic aortic aneurysm is not noted. A small to moderate bilateral pleural effusions. A pericardial effusion is not seen. Bibasilar atelectasis. Right lower lobe opacity. Mild bilateral interstitial lung opacities. Debris within the right lower lobe bronchus Mild right hilar lymphadenopathy IMPRESSION: Negative for a pulmonary embolism. Small to moderate bilateral pleural effusions Mild bilateral interstitial lung opacities likely interstitial pulmonary edema Right lower lobe opacity could represent superimposed pneumonia or atelectasis To 3 within the right lower lobe bronchus may represent mucus Mild right hilar lymphadenopathy
[2019-07-24] MEDS: SPIRONOLACTONE 25 MG TABLET PO SCH ×2 (16:26→20:33)
[2019-07-24] MEDS ORDERED: FUROSEMIDE 40 MG/4 ML VIAL IV SCH (17:00)
[2019-07-24] MEDS: PREGABALIN 50 MG CAP PO SCH (17:30)
[2019-07-24] MEDS: QUETIAPINE 100MG TAB PO SCH (20:32)
[2019-07-24] MEDS: ROPINIROLE HCL 1 MG TAB PO SCH (20:33)
[2019-07-25 06:38] LABS: Arterial Blood Carboxyhemoglob 0.9 % (0-1.5); Blood Gas Oxyhemoglobin 89.7 % (94-97); Blood O2 Saturation 91.3 % (92-98.5)
[2019-07-25] MEDS: INSULIN -REGULAR HUMAN 50 UNIT/0.5 ML ML SQ SCH ×4 (07:30→21:00)
[2019-07-25] MEDS: ALBUTEROL 2.5 MG/3 ML NEB SOL NEB PRN ×2 (07:49→13:50)
[2019-07-25] MEDS: IPRATROPIUM BROM 0.5MG/2.5ML NEB PRN ×2 (07:49→13:50)
[2019-07-25] MEDS: DOCUSATE NA 100 MG CAP PO SCH (08:38)
[2019-07-25] MEDS: SPIRONOLACTONE 25 MG TABLET PO SCH ×2 (08:38→20:44)
[2019-07-25] MEDS: ASPIRIN EC 81 MG TAB PO SCH (08:38)
[2019-07-25] MEDS: FUROSEMIDE 40 MG/4 ML VIAL IV SCH (08:41)
[2019-07-25] MEDS: ENOXAPARIN 100 MG/ML SYR SQ SCH (08:41)
[2019-07-25] MEDS: CEFTRIAXONE/SWI 1gm 1 GM/10 ML SYR IV SCH (08:42)
[2019-07-25] MEDS: HOME MED 1 EA UNK (Mirabegron 50 MG) PO SCH (08:42)
[2019-07-25] MEDS: CRANBERRY FRUIT EXTRACT 200 MG CAP PO SCH (09:00)
[2019-07-25] MEDS: GUAIFENESIN 600 MG SA TAB PO SCH ×2 (09:00→20:44)
[2019-07-25 09:24] LABS: Absolute Lymphocytes (CBC) 1.6 K/uL (0.7-4.9); Albumin 3.2 g/dL (3.4-5.0); Basophils % 0.8 % (0-1.3); Bilirubin Total 0.5 mg/dL (0.2-1.0); Hematocrit 33.7 % (36.0-45.0); Lymphocytes % 19.6 % (15.3-44.8); MPV 9.8 fL (7.6-11.3); Potassium 3.5 mmol/L (3.5-5.1); Protein, Total 6.3 g/dL (6.4-8.2); RBC Red Blood Cell Count 3.26 M/uL (3.86-4.86)
--- NOTE | 2019-07-25 09:49 | P.PN ---
Subjective Date of Service: 07/25/19 Chief Complaint: Congestive heart failure Subjective: Improving (Patient is improving the pressure is slightly low feeling better) Review of Systems General: Weakness Respiratory: Shortness of Breath Physical Examination - Vital Signs Temperature: 99.1 F Blood Pressure: 89/52 Pulse: 102 Respirations: 25 Pulse Ox (%): 95 - Physical Exam General: Alert, In no apparent distress, Oriented x3 Respiratory: Crackles/rales Cardiovascular: No edema, Normal S1 S2, Irregular heart rate/rhythm Assessment & Plan - Problems (Diagnosis) (1) Diastolic heart failure Current Visit: Yes Status: Acute Plan: I strongly suspect patient has diastolic heart failure of ordered another x-ray she is feeling better Dc Rocephin no evidence of sepsis pro calcitonin level is also negative renal function normal CBC shows a slight macrocytosis need to stopped the Actos coded precipitated this reduce dose of Lasix continue with spironolactone change to p.o. Eliquis for AFib Qualifiers: Heart failure chronicity: acute Qualified Code(s): I50.31 - Acute diastolic (congestive) heart failure
--- NOTE | 2019-07-25 09:59 | P.PN ---
Subjective Date of Service: 07/25/19 Chief Complaint: Congestive heart failure Subjective: Improving (Shortness of breath since improved still having cough) Review of Systems 10-point ROS is otherwise unremarkable Physical Examination - Vital Signs Temperature: 99.1 F Blood Pressure: 89/52 Pulse: 102 Respirations: 25 Pulse Ox (%): 95 - Physical Exam General: Alert, In no apparent distress HEENT: Atraumatic, Normocephalic Neck: Supple Respiratory: Diminished, Crackles/rales, Expiratory wheezes Cardiovascular: Normal pulses, Regular rate/rhythm Capillary refill: <2 Seconds Gastrointestinal: Soft and benign, W/out hepatosplenomegaly Musculoskeletal: No clubbing Integumentary: No rashes Neurological: Normal speech, Normal strength at 5/5 x4 extr Lymphatics: No axilla or inguinal lymphadenopathy Urinary: Other (No bladder distention) External genitalia: Deferred Rectal: Deferred - Studies Laboratory Last Values WBC 8.2 K/uL (4.3-10.9) D 07/25/19 08:50 RBC 3.26 M/uL (3.86-4.86) L 07/25/19 08:50 Hgb 11.1 g/dL (12.0-15.0) L 07/25/19 08:50 Hct 33.7 % (36.0-45.0) L 07/25/19 08:50 MCV 103.6 fL (80-100) H 07/25/19 08:50 MCH 34.2 pg (27.0-35.0) 07/25/19 08:50 MCHC 33.0 g/dL (32.0-36.0) 07/25/19 08:50 RDW 14.3 % (12.1-15.2) 07/25/19 08:50 Plt Count 347 K/uL (152-406) 07/25/19 08:50 MPV 9.8 fL (7.6-11.3) 07/25/19 08:50 Neutrophils % 71.3 % (41.7-73.7) 07/25/19 08:50 Lymphocytes % 19.6 % (15.3-44.8) 07/25/19 08:50 Monocytes % 7.0 % (3.3-12.3) 07/25/19 08:50 Eosinophils % 1.3 % (0-4.4) 07/25/19 08:50 Basophils % 0.8 % (0-1.3) 07/25/19 08:50 Absolute Neutrophils 5.9 K/uL (1.8-8.0) 07/25/19 08:50 Absolute Lymphocytes 1.6 K/uL (0.7-4.9) 07/25/19 08:50 Absolute Monocytes 0.6 K/uL (0.1-1.3) 07/25/19 08:50 Absolute Eosinophils 0.1 K/uL (0-0.5) 07/25/19 08:50 Absolute Basophils 0.1 K/uL (0-0.5) 07/25/19 08:50 Anisocytosis 1+ 07/22/19 19:25 Morphology Comment Noted (NOT SEEN) 07/22/19 19:25 PT 13.6 SECONDS (9.5-12.5) H 07/22/19 19:25 INR 1.16 07/22/19 19:25 pH 7.40 (7.35-7.45) 07/25/19 06:00 pCO2 44.6 mmHG (35-45) 07/25/19 06:00 pO2 66.1 mmHG (75-100) L 07/25/19 06:00 HCO3 27.2 mmol/L (22-28) 07/25/19 06:00 Base Excess Cancelled 07/25/19 06:00 Oxyhemoglobin 89.7 % (94-97) L 07/25/19 06:00 ABG O2 Sat (Measured) 91.3 % (92-98.5) L 07/25/19 06:00 ABG Carboxyhemoglobin 0.9 % (0-1.5) 07/25/19 06:00 ABG Methemoglobin 0.9 % (0-1.5) 07/25/19 06:00 Other Total Hgb 11.8 g/dl (12-18) L 07/25/19 06:00 Inspired O2 28.0 % 07/25/19 06:00 Sodium 138 mmol/L (136-145) 07/25/19 08:50 Potassium 3.5 mmol/L (3.5-5.1) 07/25/19 08:50 Chloride 102 mmol/L (98-107) 07/25/19 08:50 Carbon Dioxide 27 mmol/L (21-32) 07/25/19 08:50 BUN 27 mg/dL (7-18) H 07/25/19 08:50 Creatinine 1.05 mg/dL (0.55-1.3) 07/25/19 08:50 Estimated GFR 49 mL/min (=/>90) L 07/25/19 08:50 Glucose 142 mg/dL (74-106) H 07/25/19 08:50 POC Glucose 123 mg/dl (65-120) H 07/25/19 08:16 Lactic Acid 1.6 mmol/L (0.4-2.0) 07/23/19 00:27 Calcium 9.0 mg/dL (8.5-10.1) 07/25/19 08:50 Phosphorus 3.9 mg/dL (2.5-4.9) 07/23/19 04:19 Magnesium 1.9 mg/dL (1.8-2.4) 07/23/19 04:19 Total Bilirubin 0.5 mg/dL (0.2-1.0) 07/25/19 08:50 Direct Bilirubin 0.3 mg/dL (0-0.2) H 07/22/19 19:25 AST 21 U/L (15-37) 07/25/19 08:50 ALT 21 U/L (12-78) 07/25/19 08:50 Alkaline Phosphatase 99 U/L (45-117) 07/25/19 08:50 Rapid Troponin I 0.25 ng/mL (0.0-0.045) H 07/22/19 19:25 Troponin I 0.20 ng/mL (0.0-0.045) H 07/23/19 00:27 NT-Pro-B Natriuret Pep 2727 pg/mL (<450) H 07/22/19 19:25 Serum Total Protein 6.3 g/dL (6.4-8.2) L 07/25/19 08:50 Albumin 3.2 g/dL (3.4-5.0) L 07/25/19 08:50 Globulin 3.1 g/dL (2.3-3.5) 07/25/19 08:50 Albumin/Globulin Ratio 1.0 (1.1-1.8) L 07/25/19 08:50 Triglycerides 64 mg/dL (<150) 07/23/19 04:19 Cholesterol 133 mg/dL (<200) 07/23/19 04:19 LDL Cholesterol, Calc 56 (<130) 07/23/19 04:19 HDL Cholesterol 64 mg/dL (40-60) H 07/23/19 04:19 Cholesterol/HDL Ratio 2.08 07/23/19 04:19 Procalcitonin < 0.05 ng/mL (<0.50) 07/22/19 19:25 Assessment & Plan - Problems (Diagnosis) (1) Acute CHF Current Visit: Yes Status: Acute Qualifiers: Heart failure type: diastolic Qualified Code(s): I50.31 - Acute diastolic ( congestive) heart failure (2) Atrial fibrillation with RVR Current Visit: Yes Status: Acute (3) DM type 2 (diabetes mellitus, type 2) Current Visit: Yes Status: Chronic Qualifiers: Diabetes mellitus complication status: with circulatory complication (4) Elevated troponin Current Visit: Yes Status: Acute (5) Insomnia Current Visit: No Status: Chronic Qualifiers: Insomnia type: unspecified Qualified Code(s): G47.00 - Insomnia, unspecified (6) Neuropathy Current Visit: No Status: Chronic Plan: Acute CHF exacerbation diastolic Atrial fibrillation rate controlled Elevated troponin possibly Trop leak from CHF ? Bibasilar pneumonia Elevated lactic acid with normal pro calcitonin DM Hypertension Neuropathy Plan Patient was seen and examined ICU monitored by telemetry Echocardiogram showed normal EF with DD Cardiology consult appreciated Anticoagulation Trend cardiac enzymes bronchodilators, Antitussives Insulin sliding scale and Was on BiPAP Aggressive diuresis with Lasix Appreciate consult with pulmonology Cardiology consult appreciated Monitor closely Patient looks more comfortable today continues same measures for now Time Spent Managing Pts Care (In Minutes): 42
[2019-07-25] MEDS: guaiFENesin 100 MG/5 ML UCUP PO PRN (10:10)
--- NOTE | 2019-07-25 10:20 | RAD REPORT ---
EXAM DESCRIPTION: RAD - Chest Single View - 07/25/2019 10:10 am CLINICAL HISTORY: Follow for CHF COMPARISON: Chest Single View dated 07/24/2019; Chest For Pe Angio dated 07/24/2019 TECHNIQUE: AP portable chest image was obtained 07/25/2019 10:10 am . FINDINGS: Lung volumes are low. Bilateral pleural effusions are present larger on the right. Fluid v olume does not appear to have changed since July 24. Interstitial infiltrate or edema pattern rem ains. Interstitial pattern is similar to fractionally improved. Heart size and vasculature remain pro minent. IMPRESSION: Right greater than left pleural effusions not substantially different from comparison. Interstitial edema or infiltrate pattern similar or fractionally improved from prior day imaging.
[2019-07-25] MEDS ORDERED: MAGNESIUM HYDROXIDE 8% 30 ML PO ONE (15:54)
[2019-07-25] MEDS: PREGABALIN 50 MG CAP PO SCH ×2 (17:30→18:01)
[2019-07-25] MEDS: METOPROLOL TAR 25 MG TAB PO SCH (17:58)
[2019-07-25] MEDS: QUETIAPINE 100MG TAB PO SCH (20:42)
[2019-07-25] MEDS: APIXABAN 5 MG TABLET PO SCH (20:42)
[2019-07-25] MEDS: ROPINIROLE HCL 1 MG TAB PO SCH (21:00)
[2019-07-26] MEDS: guaiFENesin 100 MG/5 ML UCUP PO PRN ×2 (00:17→10:13)
[2019-07-26] MEDS: MELATONIN 5 MG TABLET PO SCH ×2 (01:34→20:03)
[2019-07-26 06:00] LABS: Absolute Lymphocytes (CBC) 1.6 K/uL (0.7-4.9); Basophils % 0.6 % (0-1.3); Hematocrit 33.1 % (36.0-45.0); Lymphocytes % 17.9 % (15.3-44.8); MPV 9.7 fL (7.6-11.3); RBC Red Blood Cell Count 3.21 M/uL (3.86-4.86)
[2019-07-26] MEDS: METOPROLOL TAR 25 MG TAB PO SCH ×2 (06:00→17:35)
[2019-07-26 07:07] LABS: Potassium 3.8 mmol/L (3.5-5.1)
[2019-07-26] MEDS ORDERED: POTASSIUM CL SA 10 MEQ TAB PO ONE (07:17)
[2019-07-26 07:24] LABS: Urine White Blood Cell Casts OK
[2019-07-26 07:25] LABS: Blood Morphology Comment NOT SEEN (NOT SEEN); Platelet Estimate ADEQ
[2019-07-26] MEDS ORDERED: ZOLPIDEM TARTRATE 5 MG TABLET PO PRN (07:29)
[2019-07-26] MEDS: INSULIN -REGULAR HUMAN 50 UNIT/0.5 ML ML SQ SCH ×4 (07:30→20:03)
[2019-07-26] MEDS: DOCUSATE NA 100 MG CAP PO SCH (07:56)
[2019-07-26] MEDS: APIXABAN 5 MG TABLET PO SCH ×2 (07:56→20:00)
[2019-07-26] MEDS: ASPIRIN EC 81 MG TAB PO SCH (07:56)
[2019-07-26] MEDS: CRANBERRY FRUIT EXTRACT 200 MG CAP PO SCH (07:56)
[2019-07-26] MEDS: FUROSEMIDE 40 MG/4 ML VIAL IV SCH (07:57)
[2019-07-26] MEDS: HOME MED 1 EA UNK (Mirabegron 50 MG) PO SCH (08:00)
[2019-07-26] MEDS: HOME MED 1 EA UNK (Mirabegron [Myrbetriq] 50 MG) PO SCH (08:00)
[2019-07-26] MEDS: GUAIFENESIN 600 MG SA TAB PO SCH ×2 (08:01→20:00)
[2019-07-26] MEDS: ALBUTEROL 2.5 MG/3 ML NEB SOL NEB PRN (08:20)
[2019-07-26] MEDS: IPRATROPIUM BROM 0.5MG/2.5ML NEB PRN (08:20)
--- NOTE | 2019-07-26 09:19 | PN ---
Date of Progress Note: 07/25/2019 Ms. Hinkle had come in with acute diastolic congestive heart failure, atrial fibrillation, diabetes, elevated troponin. Echocardiogram showed decreased left ventricular compliance. She worsened overn ight on 07/24/2019 and was transferred in the ICU. She is in the ICU right now. Her atrial fibrilla tion has resolved. She is in sinus rhythm right now. She has diuresed over 3500 mL on IV Lasix in t ICU. She remains on Aldactone, but no beta-blockers. Her vital signs otherwise are stable. She still have some rales at the bases, but no pedal edema. I suggest that we start her on low-dose meto prolol 25 b.i.d. Continue the Aldactone and continue the Lasix for now. PHILOMENA/SMILEYL Voice ID: [id number] Report ID: [id number]
--- NOTE | 2019-07-26 09:24 | PN ---
Date of Progress Note: 07/26/2019 Ms. Hinkle remains in the ICU. She has improved dramatically as far as her congestive heart failure is concerned. She has diuresed significantly and is feeling better. She has adequate O2 saturation on nasal cannula. She is still in and out of atrial fibrillation. Her metoprolol was held secondar y to hypotension. Her systolic blood pressure is 90. I suggest that we keep her on Lasix p.o. daily . I suggest we get off the Aldactone, start physical therapy, try to resume Lopressor 25 b.i.d. if h er blood pressure tolerates it. It would be good to keep her in the ICU 1 more day. PHILOMENA/MODL Voice ID: [id number] Report ID: [id number]
--- NOTE | 2019-07-26 09:49 | RAD REPORT ---
EXAM DESCRIPTION: [place] Single View07/26/2019 7:13 am CLINICAL HISTORY: Shortness of breath COMPARISON: July 25 FINDINGS: No significant change in the mild bilateral interstitial lung opacities, small to moderat e pleural effusions, cardiomegaly and right basilar opacity. The right basilar opacity may represent atelectasis or pneumonia
--- NOTE | 2019-07-26 10:20 | P.PN ---
Subjective Date of Service: 07/26/19 Chief Complaint: Congestive heart failure Subjective: Improving (Feeling better Denies any chest pain Shortness breath is improving Complains of cough) Review of Systems 10-point ROS is otherwise unremarkable Physical Examination - Vital Signs Temperature: 96.7 F Blood Pressure: 98/72 Pulse: 95 Respirations: 21 Pulse Ox (%): 92 - Physical Exam General: Alert, In no apparent distress, Oriented x3 HEENT: Atraumatic, Normocephalic Neck: Supple Respiratory: Diminished, Crackles/rales Cardiovascular: Other (On and off Afib ), Irregular heart rate/rhythm Capillary refill: <2 Seconds Gastrointestinal: Soft and benign, Non-distended Musculoskeletal: No clubbing, Swelling Integumentary: No rashes Neurological: Normal speech, Normal strength at 5/5 x4 extr Lymphatics: No axilla or inguinal lymphadenopathy Urinary: Other (No bladder distention) External genitalia: Deferred Rectal: Deferred - Studies Laboratory Last Values WBC 9.0 K/uL (4.3-10.9) 07/26/19 05:14 RBC 3.21 M/uL (3.86-4.86) L 07/26/19 05:14 Hgb 11.2 g/dL (12.0-15.0) L 07/26/19 05:14 Hct 33.1 % (36.0-45.0) L 07/26/19 05:14 MCV 103.1 fL (80-100) H 07/26/19 05:14 MCH 35.0 pg (27.0-35.0) 07/26/19 05:14 MCHC 33.9 g/dL (32.0-36.0) 07/26/19 05:14 RDW 14.4 % (12.1-15.2) 07/26/19 05:14 Plt Count 383 K/uL (152-406) 07/26/19 05:14 MPV 9.7 fL (7.6-11.3) 07/26/19 05:14 Neutrophils % 71.9 % (41.7-73.7) 07/26/19 05:14 Lymphocytes % 17.9 % (15.3-44.8) 07/26/19 05:14 Monocytes % 7.2 % (3.3-12.3) 07/26/19 05:14 Eosinophils % 2.4 % (0-4.4) 07/26/19 05:14 Basophils % 0.6 % (0-1.3) 07/26/19 05:14 Absolute Neutrophils 6.5 K/uL (1.8-8.0) 07/26/19 05:14 Absolute Lymphocytes 1.6 K/uL (0.7-4.9) 07/26/19 05:14 Absolute Monocytes 0.7 K/uL (0.1-1.3) 07/26/19 05:14 Absolute Eosinophils 0.2 K/uL (0-0.5) 07/26/19 05:14 Absolute Basophils 0.1 K/uL (0-0.5) 07/26/19 05:14 Anisocytosis 1+ 07/22/19 19:25 Morphology Comment Not seen (NOT SEEN) 07/26/19 05:14 PT 13.6 SECONDS (9.5-12.5) H 07/22/19 19:25 INR 1.16 07/22/19 19:25 pH 7.40 (7.35-7.45) 07/25/19 06:00 pCO2 44.6 mmHG (35-45) 07/25/19 06:00 pO2 66.1 mmHG (75-100) L 07/25/19 06:00 HCO3 27.2 mmol/L (22-28) 07/25/19 06:00 Base Excess Cancelled 07/25/19 06:00 Oxyhemoglobin 89.7 % (94-97) L 07/25/19 06:00 ABG O2 Sat (Measured) 91.3 % (92-98.5) L 07/25/19 06:00 ABG Carboxyhemoglobin 0.9 % (0-1.5) 07/25/19 06:00 ABG Methemoglobin 0.9 % (0-1.5) 07/25/19 06:00 Other Total Hgb 11.8 g/dl (12-18) L 07/25/19 06:00 Inspired O2 28.0 % 07/25/19 06:00 Sodium 138 mmol/L (136-145) 07/26/19 05:14 Potassium 3.8 mmol/L (3.5-5.1) 07/26/19 05:14 Chloride 101 mmol/L (98-107) 07/26/19 05:14 Carbon Dioxide 31 mmol/L (21-32) 07/26/19 05:14 BUN 28 mg/dL (7-18) H 07/26/19 05:14 Creatinine 0.99 mg/dL (0.55-1.3) 07/26/19 05:14 Estimated GFR 53 mL/min (=/>90) L 07/26/19 05:14 Glucose 113 mg/dL (74-106) H 07/26/19 05:14 POC Glucose 126 mg/dl (65-120) H 07/26/19 07:37 Lactic Acid 1.1 mmol/L (0.4-2.0) 07/25/19 10:27 Calcium 8.9 mg/dL (8.5-10.1) 07/26/19 05:14 Phosphorus 3.9 mg/dL (2.5-4.9) 07/23/19 04:19 Magnesium 2.5 mg/dL (1.8-2.4) H D 07/26/19 05:14 Total Bilirubin 0.5 mg/dL (0.2-1.0) 07/25/19 08:50 Direct Bilirubin 0.3 mg/dL (0-0.2) H 07/22/19 19:25 AST 21 U/L (15-37) 07/25/19 08:50 ALT 21 U/L (12-78) 07/25/19 08:50 Alkaline Phosphatase 99 U/L (45-117) 07/25/19 08:50 Rapid Troponin I 0.25 ng/mL (0.0-0.045) H 07/22/19 19:25 Troponin I 0.20 ng/mL (0.0-0.045) H 07/23/19 00:27 NT-Pro-B Natriuret Pep 2727 pg/mL (<450) H 07/22/19 19:25 Serum Total Protein 6.3 g/dL (6.4-8.2) L 07/25/19 08:50 Albumin 3.2 g/dL (3.4-5.0) L 07/25/19 08:50 Globulin 3.1 g/dL (2.3-3.5) 07/25/19 08:50 Albumin/Globulin Ratio 1.0 (1.1-1.8) L 07/25/19 08:50 Triglycerides 64 mg/dL (<150) 07/23/19 04:19 Cholesterol 133 mg/dL (<200) 07/23/19 04:19 LDL Cholesterol, Calc 56 (<130) 07/23/19 04:19 HDL Cholesterol 64 mg/dL (40-60) H 07/23/19 04:19 Cholesterol/HDL Ratio 2.08 07/23/19 04:19 Procalcitonin < 0.05 ng/mL (<0.50) 07/22/19 19:25 Assessment & Plan - Problems (Diagnosis) (1) Acute CHF Current Visit: Yes Status: Acute Qualifiers: Heart failure type: diastolic Qualified Code(s): I50.31 - Acute diastolic ( congestive) heart failure (2) Atrial fibrillation with RVR Current Visit: Yes Status: Acute (3) DM type 2 (diabetes mellitus, type 2) Current Visit: Yes Status: Chronic Qualifiers: Diabetes mellitus complication status: with circulatory complication (4) Elevated troponin Current Visit: Yes Status: Acute (5) Insomnia Current Visit: No Status: Chronic Qualifiers: Insomnia type: unspecified Qualified Code(s): G47.00 - Insomnia, unspecified (6) Neuropathy Current Visit: No Status: Chronic Plan: Acute CHF exacerbation diastolic Atrial fibrillation rate controlled Elevated troponin possibly Trop leak from CHF ? Bibasilar pneumonia Elevated lactic acid with normal pro calcitonin DM Hypertension Neuropathy Plan Getting better Antitussives for cough Appreciated from cardiology and pulmonology monitored by telemetry : In and out of AFib Echocardiogram showed normal EF with DD Anticoagulation Was on antibiotic, stopped as the procalcitonin is normal Continue bronchodilators, Antitussives Was on BiPAP , weaned off saturating well in nasal cannula Aggressive diuresis with Lasix Monitor closely Possible transfer to floor in a.m. Discharge Plan: Home Plan to discharge in: 48 Hours Time Spent Managing Pts Care (In Minutes): 42
[2019-07-26] MEDS ORDERED: LACTULOSE 20 GM/30 ML UCUP PO ONE (13:13)
[2019-07-26] MEDS ORDERED: PREGABALIN 50 MG CAP PO SCH (17:30)
[2019-07-26] MEDS: PREGABALIN 50 MG CAP PO SCH (17:35)
[2019-07-26] MEDS: QUETIAPINE 100MG TAB PO SCH (20:00)
[2019-07-26] MEDS: ROPINIROLE HCL 1 MG TAB PO SCH (20:02)
[2019-07-27] MEDS: METOPROLOL TAR 25 MG TAB PO SCH ×2 (05:26→17:26)
[2019-07-27 05:34] LABS: Potassium 3.8 mmol/L (3.5-5.1)
[2019-07-27] MEDS ORDERED: POTASSIUM CL SA 10 MEQ TAB PO ONE (05:41)
[2019-07-27] MEDS: INSULIN -REGULAR HUMAN 50 UNIT/0.5 ML ML SQ SCH ×4 (07:30→20:25)
[2019-07-27] MEDS: APIXABAN 5 MG TABLET PO SCH (08:20)
[2019-07-27] MEDS: FUROSEMIDE 40 MG/4 ML VIAL IV SCH (08:20)
[2019-07-27] MEDS: ASPIRIN EC 81 MG TAB PO SCH (08:20)
[2019-07-27] MEDS: CRANBERRY FRUIT EXTRACT 200 MG CAP PO SCH (08:20)
[2019-07-27] MEDS: DOCUSATE NA 100 MG CAP PO SCH (08:20)
[2019-07-27] MEDS: HOME MED 1 EA UNK (Mirabegron 50 MG) PO SCH (08:21)
[2019-07-27] MEDS: HOME MED 1 EA UNK (Mirabegron [Myrbetriq] 50 MG) PO SCH (08:21)
[2019-07-27] MEDS: GUAIFENESIN 600 MG SA TAB PO SCH ×2 (08:21→21:17)
--- NOTE | 2019-07-27 11:25 | P.PN ---
Subjective Date of Service: 07/27/19 Chief Complaint: Congestive heart failure Patient is doing much better today. She was up and sitting by the side of the bed when I saw her today. She is tolerating 3 L of oxygen by nasal cannula. She reports significant improvement in the shortness of breath. Physical Examination - Vital Signs Temperature: 97.6 F Blood Pressure: 110/87 Pulse: 125 Respirations: 23 Pulse Ox (%): 99 - Physical Exam General: Alert, In no apparent distress, Oriented x3 HEENT: Mucous membr. moist/pink, Sclerae nonicteric Neck: Supple, JVD not distended Respiratory: Normal air movement, Expiratory wheezes (Mild bilateral scattered wheezes.) Cardiovascular: No edema, Regular rate/rhythm, Normal S1 S2, Other (Rapid heart rate) Capillary refill: <2 Seconds Gastrointestinal: Normal bowel sounds, Soft and benign, Non-distended, No tenderness Musculoskeletal: No swelling, No erythema Neurological: Normal speech, Normal strength at 5/5 x4 extr Assessment And Plan - Current Problems (Diagnosis) (1) Acute diastolic heart failure Current Visit: Yes Status: Acute (2) Atrial fibrillation with RVR Current Visit: Yes Status: Acute (3) Elevated troponin Current Visit: Yes Status: Acute (4) DM type 2 (diabetes mellitus, type 2) Current Visit: Yes Status: Chronic Qualifiers: Diabetes mellitus complication status: with circulatory complication - Plan Continue IV Lasix Continue bronchodilators Patient started on Eliquis for AFib anticoagulation Aspirin. Continue metoprolol. Echocardiogram reviewed Cardiology and pulmonary input appreciated. Transfer from the ICU to monitor for the next 1-2 days on the medical floor. Wean off oxygen as tolerated.
--- NOTE | 2019-07-27 16:13 | P.PN ---
Date of Service: 07/27/19 Patient is seen having hemoptysis. CTA thorax done 3 days ago result reviewed. No evidence of PE. Repeat chest x-ray. Discontinue Eliquis Monitor for active bleeding. Pulmonology to follow.
--- NOTE | 2019-07-27 16:39 | RAD REPORT ---
EXAM DESCRIPTION: RAD - Chest Single View - 07/27/2019 4:33 pm CLINICAL HISTORY: Hemoptysis Chest pain. COMPARISON: Chest Single View dated 07/26/2019; Chest Single View dated 07/25/2019; Chest Single View dated 07/24/2019; Chest Single View dated 07/22/2019; Chest For Pe Angio dated 07/24/2019 FINDINGS: Portable technique limits examination quality. Bilateral pleural effusions with bibasilar lung opacities appear essentially unchanged. The heart is moderately enlarged in size with a tortuous thoracic aorta. No displaced fractures. IMPRESSION: Stable chest since 07/26/2019.
[2019-07-27 16:47] LABS: Protime INR 1.35
[2019-07-27] MEDS: PREGABALIN 50 MG CAP PO SCH (17:03)
[2019-07-27] MEDS ORDERED: SILVER NITRATE 1 APPL TOP ONE (21:01)
[2019-07-27] MEDS: ROPINIROLE HCL 1 MG TAB PO SCH (21:17)
[2019-07-27] MEDS: QUETIAPINE 100MG TAB PO SCH (21:17)
[2019-07-27] MEDS: MELATONIN 5 MG TABLET PO SCH (21:17)
[2019-07-28 04:28] LABS: Absolute Lymphocytes (CBC) 2.2 K/uL (0.7-4.9); Basophils % 0.8 % (0-1.3); Hematocrit 35.3 % (36.0-45.0); Lymphocytes % 20.1 % (15.3-44.8); MPV 9.4 fL (7.6-11.3); RBC Red Blood Cell Count 3.42 M/uL (3.86-4.86)
[2019-07-28 04:40] LABS: Potassium 3.9 mmol/L (3.5-5.1)
[2019-07-28] MEDS ORDERED: POTASSIUM CL SA 10 MEQ TAB PO ONE (05:00)
[2019-07-28] MEDS: METOPROLOL TAR 25 MG TAB PO SCH ×2 (05:34→17:17)
[2019-07-28] MEDS: INSULIN -REGULAR HUMAN 50 UNIT/0.5 ML ML SQ SCH ×4 (07:30→20:25)
[2019-07-28] MEDS: HOME MED 1 EA UNK (Mirabegron [Myrbetriq] 50 MG) PO SCH (09:00)
[2019-07-28] MEDS: HOME MED 1 EA UNK (Mirabegron 50 MG) PO SCH (09:00)
[2019-07-28] MEDS: CRANBERRY FRUIT EXTRACT 200 MG CAP PO SCH (09:08)
[2019-07-28] MEDS: GUAIFENESIN 600 MG SA TAB PO SCH ×2 (09:09→20:26)
[2019-07-28] MEDS: FUROSEMIDE 40 MG/4 ML VIAL IV SCH (09:09)
[2019-07-28] MEDS: ASPIRIN EC 81 MG TAB PO SCH (09:09)
[2019-07-28] MEDS: DOCUSATE NA 100 MG CAP PO SCH (09:09)
[2019-07-28] MEDS: IPRATROPIUM BROM 0.5MG/2.5ML NEB PRN ×2 (09:24→21:00)
--- NOTE | 2019-07-28 15:40 | P.PN ---
Subjective Date of Service: 07/28/19 Chief Complaint: Congestive heart failure Patient reports poor sleep. She had no more hemoptysis. She actually had a laceration on her hand which was bleed. Bleeding from the tongue stopped after silver nitrate was applied. She is maintained on 3 L of oxygen by nasal cannula. She reports significant improvement in the shortness of breath. Physical Examination - Vital Signs Temperature: 97 F Blood Pressure: 109/60 Pulse: 87 Respirations: 18 Pulse Ox (%): 99 - Physical Exam General: Alert, In no apparent distress, Oriented x3 HEENT: Mucous membr. moist/pink, Sclerae nonicteric Neck: JVD not distended (Mild scattered wheezes bilaterally) Respiratory: Normal air movement Cardiovascular: No edema, Normal S1 S2, Irregular heart rate/rhythm Capillary refill: <2 Seconds Gastrointestinal: Soft and benign, No tenderness Musculoskeletal: No swelling Neurological: Normal speech, Normal strength at 5/5 x4 extr - Studies Microbiology Data (last 24 hrs): 07/22/19 20:25 Blood - Blood Aerobic Blood Culture - Final No growth in 5 days. 07/22/19 20:25 Blood - Blood Anaerobic Blood Culture - Final No growth in 5 days. 07/22/19 20:25 Blood - Blood Aerobic Blood Culture - Final No growth in 5 days. 07/22/19 20:25 Blood - Blood Anaerobic Blood Culture - Final No growth in 5 days. Assessment And Plan - Current Problems (Diagnosis) (1) Acute diastolic heart failure Current Visit: Yes Status: Acute (2) Atrial fibrillation with RVR Current Visit: Yes Status: Acute (3) Elevated troponin Current Visit: Yes Status: Acute (4) DM type 2 (diabetes mellitus, type 2) Current Visit: Yes Status: Chronic Qualifiers: Diabetes mellitus complication status: with circulatory complication - Plan Transition to oral Lasix Continue bronchodilators Resume Eliquis Continue Aspirin. Continue metoprolol. Echocardiogram reviewed Cardiology and pulmonary input appreciated. Wean off oxygen as tolerated.
[2019-07-28] MEDS: PREGABALIN 50 MG CAP PO SCH (17:18)
[2019-07-28] MEDS: ROPINIROLE HCL 1 MG TAB PO SCH (20:25)
[2019-07-28] MEDS: MELATONIN 5 MG TABLET PO SCH (20:25)
[2019-07-28] MEDS: QUETIAPINE 100MG TAB PO SCH (20:26)
[2019-07-28] MEDS: APIXABAN 5 MG TABLET PO SCH (20:26)
[2019-07-28] MEDS: ALBUTEROL 2.5 MG/3 ML NEB SOL NEB PRN (21:00)
[2019-07-29 04:16] LABS: Absolute Lymphocytes (CBC) 1.7 K/uL (0.7-4.9); Basophils % 1.2 % (0-1.3); Hematocrit 34.5 % (36.0-45.0); Lymphocytes % 19.7 % (15.3-44.8); MPV 9.6 fL (7.6-11.3); RBC Red Blood Cell Count 3.38 M/uL (3.86-4.86)
[2019-07-29 04:33] LABS: Potassium 3.7 mmol/L (3.5-5.1)
[2019-07-29 05:34] VITALS: BMI 33.5
[2019-07-29] MEDS ORDERED: POTASSIUM CL SA 10 MEQ TAB PO ONE (06:00)
[2019-07-29] MEDS: METOPROLOL TAR 25 MG TAB PO SCH (06:11)
[2019-07-29] MEDS: INSULIN -REGULAR HUMAN 50 UNIT/0.5 ML ML SQ SCH ×2 (07:30→11:34)
[2019-07-29] MEDS: APIXABAN 5 MG TABLET PO SCH (09:00)
[2019-07-29] MEDS: HOME MED 1 EA UNK (Mirabegron [Myrbetriq] 50 MG) PO SCH (09:00)
[2019-07-29] MEDS: FUROSEMIDE 40 MG/4 ML VIAL IV SCH (09:00)
[2019-07-29] MEDS: DOCUSATE NA 100 MG CAP PO SCH (09:00)
[2019-07-29] MEDS: CRANBERRY FRUIT EXTRACT 200 MG CAP PO SCH (09:00)
[2019-07-29] MEDS: GUAIFENESIN 600 MG SA TAB PO SCH (09:00)
[2019-07-29] MEDS: HOME MED 1 EA UNK (Mirabegron 50 MG) PO SCH (09:00)
[2019-07-29] MEDS ORDERED: FUROSEMIDE 40 MG TABLET PO SCH (09:00)
[2019-07-29] MEDS: ASPIRIN EC 81 MG TAB PO SCH (09:00)
[2019-07-29 09:57] VITALS: O2SAT 96
[2019-07-29 12:21] VITALS: BP 102/57; TEMP 96.9
--- NOTE | 2019-07-29 13:30 | P.PN ---
Subjective Date of Service: 07/29/19 Chief Complaint: Congestive heart failure Patient has no new complain today. She states she feels much better and wants to go home. No more bleeding from tongue. Physical Examination - Vital Signs Temperature: 96.9 F Blood Pressure: 102/57 Pulse: 84 Respirations: 16 Pulse Ox (%): 95 - Physical Exam General: Alert, In no apparent distress, Oriented x3 HEENT: Mucous membr. moist/pink, Sclerae nonicteric Neck: Supple, JVD not distended Respiratory: Normal air movement, Expiratory wheezes (Mild scattered wheezes) Cardiovascular: No edema, Normal S1 S2, Irregular heart rate/rhythm Gastrointestinal: Normal bowel sounds, Soft and benign, Non-distended, No tenderness Neurological: Normal strength at 5/5 x4 extr Assessment And Plan - Current Problems (Diagnosis) (1) Acute diastolic heart failure Current Visit: Yes Status: Acute (2) Atrial fibrillation with RVR Current Visit: Yes Status: Acute (3) Elevated troponin Current Visit: Yes Status: Acute (4) DM type 2 (diabetes mellitus, type 2) Current Visit: Yes Status: Chronic Qualifiers: Diabetes mellitus complication status: with circulatory complication - Plan Patient has improved to baseline. Continue bronchodilators Continue Eliquis Continue Aspirin. Continue metoprolol. Echocardiogram reviewed Cardiology and pulmonary input appreciated. Home oxygen qualification today for discharge.
--- NOTE | 2019-07-29 13:45 | P.DS ---
Admission Date: 07/22/19 Discharge Date: 07/29/19 Disposition: DC HOME/HOME HEALTH CARE Discharge Condition: FAIR Reason for Admission: Congestive heart failure Consultations: Cardiology Procedures: None - Problems (1) Acute diastolic heart failure Current Visit: Yes Status: Acute (2) Atrial fibrillation with RVR Current Visit: Yes Status: Acute (3) Elevated troponin Current Visit: Yes Status: Acute (4) DM type 2 (diabetes mellitus, type 2) Current Visit: Yes Status: Chronic Qualifiers: Diabetes mellitus complication status: with circulatory complication Brief History of Present Illness: 88-year-old woman with a history of restless leg syndrome and diabetes mellitus type 2 presented to the emergency department with a complaint shortness of breath of 3 days duration. Patient reports wheezing and nonproductive cough. Symptoms associated with orthopnea. She denied any chest pain or palpitation. She denied any fever. The patient noted was in rapid atrial fibrillation in the ED. Chest x-ray in the ED reported vascular congestion. She has no prior history of CHF. She mentioned at a point in time was told she has irregular heartbeat but that never bothered her. Her initial troponin was elevated. EKG demonstrated atrial fibrillation. BNP was elevated. Patient was admitted for further management of new onset CHF. Hospital Course: Patient was initially admitted to the medical floor with telemetry. She was in rapid atrial fibrillation. Her clinical condition worsened and had to be transferred to the ICU where patient was managed with aggressive Lasix therapy for CHF and metoprolol for atrial fibrillation rate controlled. She was also started on Eliquis for anticoagulation. Echocardiogram reported normal EF. The patient was treated briefly for COPD exacerbation with IV steroids and scheduled bronchodilator. Patient initially required oxygen and this was gradually tapered off as her clinical condition improved. Today patient has tolerated room air with good oxygen saturation for both at rest and with ambulation. Her heart rate is controlled with the current dose of metoprolol. Patient is deemed clinically stable for discharge. She will follow with Cardiology within a week or 2 as outpatient. Vital Signs/Physical Exam: Temp Pulse Resp BP Pulse Ox 96.9 F 84 16 102/57 L 95 07/29/19 13:30 07/29/19 13:30 07/29/19 13:30 07/29/19 13:30 07/29/19 13:30 General: Alert, In no apparent distress, Oriented x3 HEENT: Mucous membr. moist/pink, Sclerae nonicteric Neck: Supple, JVD not distended Respiratory: Clear to auscultation bilaterally, Normal air movement Cardiovascular: Normal S1 S2, Irregular heart rate/rhythm Gastrointestinal: Normal bowel sounds, Soft and benign, Non-distended, No tenderness Neurological: Normal strength at 5/5 x4 extr Laboratory Data at Discharge: WBC 8.8 K/uL (4.3-10.9) D 07/29/19 03:48 Hgb 11.6 g/dL (12.0-15.0) L 07/29/19 03:48 Hct 34.5 % (36.0-45.0) L 07/29/19 03:48 Plt Count 391 K/uL (152-406) 07/29/19 03:48 PT 15.7 SECONDS (9.5-12.5) H 07/27/19 16:36 INR 1.35 07/27/19 16:36 Sodium 137 mmol/L (136-145) 07/29/19 03:48 Potassium 3.7 mmol/L (3.5-5.1) 07/29/19 03:48 BUN 26 mg/dL (7-18) H 07/29/19 03:48 Creatinine 0.97 mg/dL (0.55-1.3) 07/29/19 03:48 Glucose 128 mg/dL (74-106) H 07/29/19 03:48 Phosphorus 3.9 mg/dL (2.5-4.9) 07/23/19 04:19 Magnesium 2.5 mg/dL (1.8-2.4) H D 07/26/19 05:14 Total Bilirubin 0.5 mg/dL (0.2-1.0) 07/25/19 08:50 AST 21 U/L (15-37) 07/25/19 08:50 ALT 21 U/L (12-78) 07/25/19 08:50 Alkaline Phosphatase 99 U/L (45-117) 07/25/19 08:50 Troponin I 0.20 ng/mL (0.0-0.045) H 07/23/19 00:27 Triglycerides 64 mg/dL (<150) 07/23/19 04:19 Cholesterol 133 mg/dL (<200) 07/23/19 04:19 HDL Cholesterol 64 mg/dL (40-60) H 07/23/19 04:19 Cholesterol/HDL Ratio 2.08 07/23/19 04:19 Home Medications: Cranberry 500 mg PO DAILY 01/29/12 Docusate Sodium [Stool Softener] 100 mg PO DAILY 09/12/16 Mirabegron [Myrbetriq] 50 mg PO DAILY 07/23/19 Pioglitazone [Actos*] 15 mg PO DAILY 07/23/19 Pregabalin [Lyrica*] 100 mg PO DAILY AFTER SUPPER 07/23/19 Quetiapine [Seroquel*] 200 mg PO BEDTIME 07/23/19 Ropinirole HCl [Requip] 3 mg PO BEDTIME 07/23/19 Albuterol Neb [Proventil 0.083% Neb Soln] 2.5 mg NEB [id number] PRN #120 amp Apixaban [Eliquis] 5 mg PO BID #30 tablet 07/29/19 Furosemide [Lasix*] 40 mg PO DAILY #30 tab 07/29/19 Ipratropium Neb [Atrovent*] 0.5 mg NEB [id number] PRN #120 amp 07/29/19 Melatonin 5 mg PO BEDTIME #30 tablet 07/29/19 Metoprolol Tartrate [Lopressor*] 25 mg PO BID 6AM 6PM #60 tab 07/29/19 Polyethyl Gly 3350 [Glycolax*] 17 gm PO DAILY PRN #30 udbot 07/29/19 guaiFENesin [Robitussin 100MG/5ML*] 10 ml PO Q4H PRN #1 bottle 07/29/19 New Medications: Ipratropium Neb [Atrovent*] 0.5 mg NEB [id number] PRN #120 amp PRN Reason: Shortness Of Breath Albuterol Neb [Proventil 0.083% Neb Soln] 2.5 mg NEB [id number] PRN #120 amp PRN Reason: Shortness Of Breath Apixaban [Eliquis] 5 mg PO BID #30 tablet Furosemide [Lasix*] 40 mg PO DAILY #30 tab guaiFENesin [Robitussin 100MG/5ML*] 10 ml PO Q4H PRN #1 bottle PRN Reason: Cough Melatonin 5 mg PO BEDTIME #30 tablet Metoprolol Tartrate [Lopressor*] 25 mg PO BID 6AM 6PM #60 tab Polyethyl Gly 3350 [Glycolax*] 17 gm PO DAILY PRN #30 udbot PRN Reason: Constipation Diet: ADA Activity: Fall precautions Followup: Krishna Worley MD [ACTIVE - CAN ADMIT] - 1-2 Weeks Time spent managing pt's care (in minutes): 43
--- NOTE | 2019-07-29 15:36 | EKG ---
Test Date: 2019-07-27 Test Time: 20:45:18 Boss Dyer: RT-O MEASUREMENT RESULTS: Intervals: Rate: 89 [place]: 194 QRSD: 92 QT: 398 QTc: 484 [place]: P: -11 [place]: 194 QRS: -5 T: 51 INTERPRETIVE STATEMENTS: Sinus rhythm with premature atrial complexes Otherwise normal ECG Compared to ECG 07/22/2019 19:07:49 Atrial premature complex(es) now present Atrial fibrillation no longer present T-wave abnormality no longer present Electronically Signed On 07-29-19 15:35:06 [facility] by Andres Hamilton
== END 2019-07-29 15:10 | disposition home health service (06) | DRG 291 ==
LOC: ER 18:50 → ERHOLD 23:07 → 4TH 23:37 → 3RD-ICU 07-24 11:15 → 4TH 07-27 15:50
PROVIDERS: ADMIT Internal Medicine; ATTEND Internal Medicine
PROC: 5A09557 Assistance with Respiratory Ventilation, Greater than 96 Consecutive Hours, Continuous Positive Airway Pressure (ICD-10-PCS; principal; 2019-07-24)
DX: I11.0 Hypertensive heart disease with heart failure (principal); J96.01 Acute respiratory failure with hypoxia; I50.31 Acute diastolic (congestive) heart failure; J18.9 Pneumonia, unspecified organism; R04.2 Hemoptysis; I48.91 Unspecified atrial fibrillation; E11.59 Type 2 diabetes mellitus with other circulatory complications; R79.89 Other specified abnormal findings of blood chemistry; G25.81 Restless legs syndrome; G47.00 Insomnia, unspecified; G62.9 Polyneuropathy, unspecified; Z79.01 Long term (current) use of anticoagulants
CPT/HCPCS: 36415; 71045; 71275; 80048; 80053; 80061; 80076; 82805; 82947; 83605; 83735; 83880; 84100; 84145; 84484; 85025; 85610; 87040; 93005; 93306; 93970; 94640; 94660; 94760; 96372; 96374; 96375; 97116; 97161; 97164; 97530; 99285; J0456; J0696; J1650; J1940; J2930; J7030; Q9967